=== PATIENT | female | born 1990 | race Caucasian/White ===

== ENCOUNTER 2020-12-04 18:14 | Emergency (ER) | payer OTHER ==
[2020-12-04 21:27] LABS: HEMOGLOBIN 17.8 gm/dl (12.3-15.3); RED BLOOD COUNT 5.86 M/UL (4.00-5.10); WHITE BLOOD COUNT 15.8 K/UL (4.5-11.0)
[2020-12-04 21:53] LABS: BUN/CREATININE RATIO 10 (0-10)
[2020-12-05] MEDS ORDERED: LODINE CAP 300300 MG PO (00:34)
[2020-12-05] MEDS ORDERED: BENTYL 20MG TAB20 MG PO (00:34)
[2020-12-05] MEDS ORDERED: ZOFRAN ODT 4 MG4 MG PO (00:34)
== END 2020-12-05 01:02 | disposition home or self-care (01) ==
LOC: ER1 18:14
PROVIDERS: Emergency Medicine
DX: R10.813 Right lower quadrant abdominal tenderness (principal); Z87.42 Personal history of other diseases of the female genital tract; Z98.890 Other specified postprocedural states
CPT/HCPCS: 80053; 81001; 82550; 82553; 83605; 83690; 84484; 84703; 85025; 87040; 93005; 94760; 96374; 96375; 99284; J0696; J1885; J2270; J2405; Q9967